=== PATIENT | male | born 1965 | race Caucasian/White ===

== ENCOUNTER 2017-06-04 03:29 | Emergency (ER) | payer OTHER ==
[~2017-06-04] VITALS: Ht 180.3 cm; Wt 90.7 kg
--- NOTE | 2017-06-04 03:29 | NUR ---
Patient ambulated to ER with steady gait, c/o shortness of breath, reports used to be a smoker, quit about a week ago. Denies chest pain.
--- NOTE | 2017-06-04 03:31 | NUR ---
Dr. Simms at bedside for MSE.
[2017-06-04] MEDS ORDERED: predniSONE 50 MG TABLET ONE (03:40)
[2017-06-04] MEDS ORDERED: predniSONE 10 MG TABLET ONE (03:40)
[2017-06-04] MEDS ORDERED: ALBUTEROL SULFATE 2.5 MG/3 ML NEBU ONE (03:41)
[2017-06-04] MEDS ORDERED: IPRATROPIUM BROMIDE 0.5 MG/2.5 ML NEBU ONE (03:41)
[2017-06-04] MEDS ORDERED: ALBUTEROL SULFATE 2.5 MG/3 ML NEBU NEB ONE (03:45)
[2017-06-04] MEDS ORDERED: predniSONE 10 MG TABLET PO ONE (03:45)
[2017-06-04] MEDS ORDERED: IPRATROPIUM BROMIDE 0.5 MG/2.5 ML NEBU NEB ONE (03:45)
--- NOTE | 2017-06-04 04:07 | NUR ---
Patient discharged to home in stable conditon. Written and verbal after care instructions given. Patient verbalizes understanding of instructions. Patient ambulated out of ER with steady gait, no acute signs of distress, VSS, all belongings taken.
[2017-06-04 04:08] VITALS: BP 116/77
== END 2017-06-04 04:08 | disposition home or self-care (01) ==
LOC: ER 03:34
DX: J98.01 Acute bronchospasm (principal)
CPT/HCPCS: 94640; 99283; A4663; J3590; J7512 ×2

== ENCOUNTER 2017-09-17 00:08 | Emergency (ER) | payer OTHER ==
[~2017-09-17] VITALS: Ht 180.3 cm; Wt 92.1 kg
--- NOTE | 2017-09-17 00:20 | NUR ---
Dr. Miller at bedside for MSE.
--- NOTE | 2017-09-17 00:25 | NUR ---
Respiratory at bedside.
[2017-09-17] MEDS ORDERED: ALBUTEROL SULFATE 2.5 MG/ 0.5 ML NEBU ONE (00:30)
[2017-09-17] MEDS ORDERED: ALBUTEROL SULFATE 2.5 MG/3 ML NEBU NEB ONE (00:30)
[2017-09-17] MEDS ORDERED: IPRATROPIUM BROMIDE 0.5 MG/2.5 ML NEBU NEB ONE (00:30)
[2017-09-17] MEDS ORDERED: methylPREDNISolone SOD SUCC 125 MG/2 ML VIAL IV ONE (00:30)
[2017-09-17] MEDS ORDERED: IPRATROPIUM BROMIDE 0.5 MG/2.5 ML NEBU ONE (00:30)
[2017-09-17] MEDS ORDERED: methylPREDNISolone SOD SUCC 125 MG/2 ML VIAL ONE (00:36)
--- NOTE | 2017-09-17 01:57 | NUR ---
Patient discharged to home in stable conditon. Written and verbal after care instructions given. Patient verbalizes understanding of instructions. Pt ambulated out of ER with steady gait, no acute signs of distress, VSS, all belongings taken, IV site discontinued.
[2017-09-17 02:00] VITALS: BP 107/67
== END 2017-09-17 02:00 | disposition home or self-care (01) ==
LOC: ER 00:10
DX: J45.901 Unspecified asthma with (acute) exacerbation (principal); F17.200 Nicotine dependence, unspecified, uncomplicated
CPT/HCPCS: A4663; J2930; J3590

== ENCOUNTER 2018-02-12 21:09 | Emergency (ER) | payer OTHER ==
[~2018-02-12] VITALS: Ht 180.3 cm; Wt 96.2 kg
[2018-02-12] MEDS ORDERED: ALBUTEROL SULFATE 2.5 MG/3 ML NEBU NEB ONE (21:30)
[2018-02-12] MEDS ORDERED: IPRATROPIUM BROMIDE 0.5 MG/2.5 ML NEBU NEB ONE (21:30)
[2018-02-12] MEDS ORDERED: IPRATROPIUM BROMIDE 0.5 MG/2.5 ML NEBU ONE (21:34)
[2018-02-12] MEDS ORDERED: ALBUTEROL SULFATE 2.5 MG/3 ML NEBU ONE (21:34)
[2018-02-12] MEDS ORDERED: AMOXICILLIN-CLAVUL 875-125MG TABLET ONE (21:43)
[2018-02-12] MEDS ORDERED: AMOXICILLIN-CLAVUL 875-125MG TABLET PO ONE (21:45)
--- NOTE | 2018-02-12 21:51 | NUR ---
Patient discharged to home in stable conditon. Written and verbal after care instructions given. Patient verbalizes understanding of instructions.
== END 2018-02-12 21:51 | disposition home or self-care (01) ==
LOC: ER 21:11
DX: J45.901 Unspecified asthma with (acute) exacerbation (principal); J32.9 Chronic sinusitis, unspecified; F17.200 Nicotine dependence, unspecified, uncomplicated
CPT/HCPCS: A4663; J3590

== ENCOUNTER 2018-03-27 23:37 | Emergency (ER) | payer OTHER ==
[~2018-03-27] VITALS: Ht 182.9 cm; Wt 93.0 kg
--- NOTE | 2018-03-28 00:20 | NUR ---
Dr. Upton at bedside for MSE.
[2018-03-28] MEDS ORDERED: ALBUTEROL SULFATE 2.5 MG/3 ML NEBU NEB ONE (00:30)
[2018-03-28] MEDS ORDERED: ALBUTEROL SULFATE 2.5 MG/3 ML NEBU ONE (00:33)
[2018-03-28 01:06] VITALS: BP 113/65
== END 2018-03-28 01:07 | disposition home or self-care (01) ==
LOC: ER 23:38
DX: J45.901 Unspecified asthma with (acute) exacerbation (principal); Z87.891 Personal history of nicotine dependence
CPT/HCPCS: 71045; 93005; A4663

== ENCOUNTER 2018-06-19 19:00 | Emergency (ER) | payer OTHER ==
[~2018-06-19] VITALS: Ht 182.9 cm; Wt 90.7 kg
[2018-06-19] MEDS ORDERED: predniSONE 10 MG TABLET PO ONE (19:30)
[2018-06-19] MEDS ORDERED: ALBUTEROL SULFATE 2.5 MG/3 ML NEBU NEB ONE (19:30)
[2018-06-19] MEDS ORDERED: IPRATROPIUM BROMIDE 0.5 MG/2.5 ML NEBU NEB ONE (19:30)
[2018-06-19] MEDS ORDERED: predniSONE 10 MG TABLET ONE (19:31)
[2018-06-19] MEDS ORDERED: predniSONE 50 MG TABLET ONE (19:31)
[2018-06-19] MEDS ORDERED: ALBUTEROL SULFATE 2.5 MG/3 ML NEBU ONE (19:42)
[2018-06-19] MEDS ORDERED: IPRATROPIUM BROMIDE 0.5 MG/2.5 ML NEBU ONE (19:42)
--- NOTE | 2018-06-19 19:45 | NUR ---
RT at bedside for brthing tx
--- NOTE | 2018-06-19 20:11 | NUR ---
Patient discharged to home in stable conditon. Written and verbal after care instructions given. Patient verbalizes understanding of instructions.
== END 2018-06-19 20:12 | disposition home or self-care (01) ==
LOC: ER 19:00
DX: J45.901 Unspecified asthma with (acute) exacerbation (principal); F17.200 Nicotine dependence, unspecified, uncomplicated
CPT/HCPCS: 94640; 99283; J7512 ×2; A4663; J3590